=== PATIENT | female | born 1975 | race Hispanic/Latino ===

== ENCOUNTER 2017-04-23 11:44 | Emergency (ER) | payer OTHER ==
[2017-04-23] MEDS ORDERED: Sodium Chloride 0.9% 1,000 ML IV ONE (12:16)
--- NOTE | 2017-04-23 12:32 | RAD ---
HISTORY: chest pain COMPARISON: None available. TECHNIQUE: Chest, one view. FINDINGS: Examination limited by habitus. LUNGS: No focal consolidation. Please note that chest x-ray has limited sensitivity for the detection of pulmonary masses. PLEURA: No significant pleural effusion identified. No definite pneumothorax . CARDIOVASCULAR: Heart size appears within normal limits. OSSEOUS STRUCTURES: Degenerative changes. VISUALIZED UPPER ABDOMEN: Unremarkable. OTHER FINDINGS: None. IMPRESSION: No focal consolidation, significant pleural effusion, or definite pneumothorax identified.
[2017-04-23 12:57] LABS: BASO # 0.1 K/uL (0.0-0.2); BASO % 0.5 % (0.0-2.0); EOS # 0.1 K/uL (0.0-0.7); EOS % 0.4 % (0.0-4.0); HEMOGLOBIN 14.6 g/dL (11.0-16.0); LYMPH # 0.7 K/uL (1.0-4.3); LYMPH % 4.5 % (20.0-40.0); MEAN CELL VOLUME 86.9 fL (81.0-99.0); MEAN CORPUSCULAR HEMOGLOBIN 29.6 pg (27.0-31.0); MEAN PLATELET VOLUME 7.6 fL (7.2-11.7); MONO # 1.6 K/uL (0.0-0.8); MONO % 10.2 % (0.0-10.0); NEUT # 12.8 K/uL (1.8-7.0); NEUT % 84.4 % (50.0-75.0); PLATELET COUNT 145 K/uL (130-400); RBC 4.93 Mil/uL (3.80-5.20); WHITE BLOOD COUNT 15.1 K/uL (4.8-10.8)
[2017-04-23 13:10] LABS: ALB/GLOB RATIO 1.1 (1.0-2.1); ALBUMIN 4.8 g/dL (3.5-5.0); ALT/SGPT 81 U/L (9-52); AST/SGOT 103 U/L (14-36); BLOOD UREA NITROGEN 5 mg/dL (7-17); CALCIUM 9.9 mg/dl (8.6-10.4); GFR AFRICAN-AMERICAN > 60; GFR NON-AFRICAN AMERICAN 50; INR 1.1; PROTHROMBIN TIME 12.2 SECONDS (9.7-12.2)
[2017-04-23] MEDS ORDERED: Potassium Chloride 20 mEq ER Tab PO STA (13:10)
--- NOTE | 2017-04-23 13:23 | C.PDOC ---
History Of Present Illness 41 y/o female with history of HTN and depression brought to ED status post syncope episode. [place] was at police station reporting her car was stolen whe she passed out. As per EMS seizure activity was noted and patient denies urinary incontinence or tongue biting. At ED patient states she "feels well" and reports flu like symptoms for "few days". Patient denies fever or any other complaints at this time. Time Seen by Provider: 04/23/17 12:13 Chief Complaint (Nursing): Syncope History Per: Patient History/Exam Limitations: no limitations Onset/Duration Of Symptoms: Days Current Symptoms Are (Timing): Still Present Past Medical History Reviewed: Historical Data, Nursing Documentation, Vital Signs Vital Signs: Last Vital Signs Temp 99.1 F 04/23/17 14:53 Pulse 104 H 04/23/17 16:00 Resp 18 04/23/17 16:00 BP 139/96 H 04/23/17 16:00 Pulse Ox 100 04/23/17 18:23 - Medical History PMH: No Chronic Diseases Surgical History: No Surg Hx Family History: States: No Known Family Hx - Social History Hx Alcohol Use: No Hx Substance Use: No - Immunization History Hx Tetanus Toxoid Vaccination: No Hx Influenza Vaccination: No Hx Pneumococcal Vaccination: No Review Of Systems Constitutional: Negative for: Fever, Chills Gastrointestinal: Negative for: Nausea, Vomiting Genitourinary: Negative for: Incontinence Skin: Negative for: Rash Neurological: Negative for: Weakness, Numbness Physical Exam - Physical Exam Appears: Non-toxic, No Acute Distress Skin: Warm, Dry, No Rash Head: Atraumatic Eye(s): bilateral: Normal Inspection Oral Mucosa: Moist Neck: Normal ROM, Supple Cardiovascular: Rhythm Regular, Other (Tachycardic) Respiratory: Normal Breath Sounds, No Rales, No Rhonchi, No Wheezing Gastrointestinal/Abdominal: Soft, No Tenderness, No Guarding, No Rebound Back: No CVA Tenderness Extremity: Normal ROM, Capillary Refill (<2 seconds) Neurological/Psych: Oriented x3, Normal Speech, Normal Motor, Normal Sensation Gait: Steady ED Course And Treatment - Laboratory Results Result Diagrams: 04/23/17 12:54 04/23/17 12:54 ECG: Interpreted By Me, Viewed By Me ECG Rhythm: Sinus Tachycardia Rate From EC (bpm ) O2 Sat by Pulse Oximetry: 100 (RA) Pulse Ox Interpretation: Normal Medical Decision Making Medical Decision Making: syncope -r /o infectious, metabolic, cardiac, intracranial etillogy - labs imaging pendign 622: pt reassesed: declines admission, noted leukoctyosis, with infected urine. no meningmus. k replaced. pt continues to decline admission. signs ama. Disposition - Disposition Disposition: AGAINST MEDICAL ADVICE Disposition Time: 18:05 Condition: UNKNOWN Additional Instructions: please follow up with your doctor. return to er with worsening symptoms or concerns. you are declinign admission. return to er with worsening symptoms or concerns Prescriptions: Nitrofurantoin Macrocrystals [Macrobid] 100 mg PO BID #14 cap Instructions: Urinary Tract Infection in Women (ED), Syncope (DC), Leukocytosis (DC), Against Medical Advice (ED) Forms: Monitor My Meds (Syriac) - Clinical Impression Clinical Impression: Syncope, Hypokalemia, Leukocytosis, UTI (urinary tract infection) - Scribe Statement The provider has reviewed the documentation as recorded by the Aideeibconcepcion Phan All medical record entries made by the Aideeibconcepcion were at my direction and personally dictated by me. I have reviewed the chart and agree that the record accurately reflects my personal performance of the history, physical exam, medical decision making, and the department course for this patient. I have also personally directed, reviewed, and agree with the discharge instructions and disposition.
[2017-04-23 13:34] LABS: BANDS 1 % (0-2); EOSINOPHIL 2 % (0-4); LYMPHOCYTE 2 % (20-40); MONOCYTE 7 % (0-10); NEUTROPHIL 88 % (50-75); TOTAL CELLS COUNTED 100
[2017-04-23 13:35] LABS: ANISOCYTOSIS SLIGHT; PLATELET ESTIMATE NORMAL (NORMAL); STOMATOCYTES SLIGHT
[2017-04-23] MEDS ORDERED: Potassium Chloride 20 mEq ER Tab PO ONE (14:16)
--- NOTE | 2017-04-23 15:09 | CT ---
PROCEDURE: CT HEAD WITHOUT CONTRAST. HISTORY: syncope COMPARISON: None available. TECHNIQUE: Axial computed tomography images were obtained through the head/brain without intravenous contrast. Radiation dose: Total exam DLP = 510.61 mGy-cm. This CT exam was performed using one or more of the following dose reduction techniques: Automated exposure control, adjustment of the mA and/or kV according to patient size, and/or use of iterative reconstruction technique. FINDINGS: HEMORRHAGE: No intracranial hemorrhage. BRAIN: No mass effect or edema. Scattered periventricular and subcortical white matter hypodensities, which are nonspecific, but often seen with chronic microvascular ischemic disease. Please note that MRI with diffusion imaging is more sensitive in the detection of acute ischemic event. VENTRICLES: No hydrocephalus. CALVARIUM: Unremarkable. PARANASAL SINUSES: Unremarkable as visualized. No significant inflammatory changes. MASTOID AIR CELLS: Unremarkable as visualized. No inflammatory changes. OTHER FINDINGS: None. IMPRESSION: No acute intracranial pathology identified.
[2017-04-23 17:56] LABS: URINE BILIRUBIN MODERATE (NEGATIVE); URINE CLARITY HAZY (Clear); URINE COLOR AMBER (YELLOW); URINE GLUCOSE (UA) 250 mg/dL (Normal)
[2017-04-23 17:57] LABS: SQUAMOUS EPITHIAL 10 /hpf (0-5); URINE BLOOD LARGE (NEGATIVE); URINE LEUKOCYTE ESTERASE TRACE Leu/uL (Negative); URINE NITRATE POSITIVE (NEGATIVE); URINE PROTEIN > 300 mg/dL (NEGATIVE)
[2017-04-23 17:58] LABS: URINE AMORPHOUS SEDIMENT FEW /ul (<OCC); URINE BACTERIA MOD (<OCC)
[2017-04-23 18:52] VITALS: BP 127/90; PULSE 110; RESP 14; TEMP 98.7; O2SAT 98
--- NOTE | 2017-04-26 08:54 | CARD ---
APPROVED REPORT EKG Measurement Heart [id number] <Conclusion> Sinus tachycardia Minimal voltage criteria for LVH, may be normal variant Borderline ECG
== END 2017-04-23 18:52 | disposition left against medical advice (07) ==
LOC: C.ER 11:44
DX: E87.6 Hypokalemia (principal); N39.0 Urinary tract infection, site not specified; R55 Syncope and collapse; D72.829 Elevated white blood cell count, unspecified; I10 Essential (primary) hypertension
CPT/HCPCS: 70450; 71045; 80053; 81001; 84484; 85025; 85610; 85730; 87804; 93005; 96360; 96361; 99285; J3480; J7040